=== PATIENT | male | born 1995 | race Caucasian/White ===

== ENCOUNTER 2020-03-05 11:30 | Emergency (ER) | payer SELFPAY ==
--- NOTE | 2020-03-05 11:59 | ER Document Report ---
ED Medical Screen (RME) - General Chief Complaint: Anxiety Stated Complaint: ANXIOUS,SHAKING Time Seen by Provider: 03/05/20 11:47 - HPI Notes: 03/05/20 11:55 24-year-old male presents to the emergency room today for evaluation of a panic attack he had while he was at work and for shaking that has become after he stopped drinking alcohol approximately 5 days ago. Patient states he has been drinking 1/5 of vodka for the last couple of years but has become progressively worse over the last 6 months. For the last 5 days patient has had some nausea and vomiting and shakes, denies any chest pain or shortness of breath. Patient became concerned when he had his panic attack at work because he was clenching his hands. Has not tried any treatment centers or detox centers. Reports his father was an alcoholic. Denies any recreational substances, does chew tobacco, does not smoke tobacco. Denies any fevers or chills. Take Lexapro for depression. I have greeted and performed a rapid initial assessment of this patient. A comprehensive ED assessment and evaluation of the patient, analysis of test results and completion of the medical decision making process will be conducted by additional ED providers. PHYSICAL EXAMINATION: GENERAL: Well-appearing, well-nourished and in no acute distress. HEAD: Atraumatic, normocephalic. EYES: Pupils equal round extraocular movements intact, conjunctiva are normal. Dilated pupils CV: Sinus tachycardia LUNGS: No respiratory distress Musculoskeletal: Normal range of motion. No visual tremors NEUROLOGICAL: Normal speech, normal gait. SKIN: Warm, Dry, normal turgor, no rashes or lesions noted. 03/05/20 11:59 - Related Data Allergies/Adverse Reactions: No Known Allergies Allergy (Verified 03/05/20 11:46) Past Medical History - Immunizations Hx Diphtheria, Pertussis, Tetanus Vaccination: Yes Physical Exam - Vital signs Vitals: Temp Pulse Resp BP Pulse Ox 98.2 F 126 H 20 153/112 H 98 03/05/20 11:40 03/05/20 11:40 03/05/20 11:40 03/05/20 11:40 03/05/20 11:40 Course - Vital Signs Vital signs: Temp Pulse Resp BP Pulse Ox 98.2 F 126 H 20 153/112 H 98 03/05/20 11:40 03/05/20 11:40 03/05/20 11:40 03/05/20 11:40 03/05/20 11:40
--- NOTE | 2020-03-05 12:26 | ER Document Report ---
ED Substance Abuse / Acc. OD - General Chief Complaint: ETOH Abuse Stated Complaint: ANXIOUS,SHAKING Time Seen by Provider: 03/05/20 11:47 Mode of Arrival: Ambulatory Information source: Patient Notes: 03/05/20 11:48 - Nursing Note by PÉREZ CRUZ Acct Num: [id number] : 1995 Patient Age: 24 Pt ambulated to triage room without difficulty. Pt sitting up to chair, Resp even & unlabored. Pt able to speak in complete sentences. Pts mother present in triage. Pt reports drinking a pint of vodka daily x 6 months and reports stopping drinking alcohol on Wednesday03/01/20. Pt reports nausea & vomiting x 4 days. 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 RIYA Elkins present for triage. ED Medical Screen ([facility]in [facility]) - General Chief Complaint: Anxiety Stated Complaint: ANXIOUS,SHAKING Time Seen by Provider: 03/05/20 11:47 - HPI Notes: 03/05/20 11:55 24-year-old male presents to the emergency room today for evaluation of a panic attack he had while he was at work and for shaking that has become after he stopped drinking alcohol approximately 5 days ago. Patient states he has been drinking 1/5 of vodka for the last couple of years but has become progressively worse over the last 6 months. For the last 5 days patient has had some nausea and vomiting and shakes, denies any chest pain or shortness of breath. Patient became concerned when he had his panic attack at work because he was clenching his hands. Has not tried any treatment centers or detox centers. Reports his father was an alcoholic. Denies any recreational substances, does chew tobacco, does not smoke tobacco. Denies any fevers or chills. Take Lexapro for depression. MY NOTES 24-year-old male arrives by POV with mother driving after he quit drinking vodka. His last vodka drink was last Wednesday 5 days ago and now he has nausea and vomiting tremors and anxiety attacks. He is tachycardic on his EKG today. Patient reports he has been drinking now for around 5 years. He is a nighttime drinker after getting off work at his [employer] job. Today around 1105 he was unloading the guns and ammunition and began to see globes and out of body experience and dizzy and had to sit down. He was also very confused and began to run to the office and he spoke with his boss and she called his mother Virginia who came to pick him up. Patient was having shakes when she arrived but was returning back to her normal sensorium. Patient takes Lexapro for the last 2 months because of depression from Dr. Martinez. Patient has a prior history of hypertension and 8 years ago used to take blood pressure medicine for 2 years and then was told he no longer needs it. He has hypertension today. Mother reports they lost grandmother and grandfather several years ago around this time. Patient has 4 dogs and 1 cat at home that he takes care of. 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 Family History: None Patient has suicidal ideation: No Patient has homicidal ideation: No - Immunizations Hx Diphtheria, Pertussis, Tetanus Vaccination: Yes Review of Systems - Review of Systems -: Yes ROS unobtainable due to patient's medical condition Constitutional: See HPI, Weakness EENT: No symptoms reported Cardiovascular: No symptoms reported Respiratory: No symptoms reported Gastrointestinal: No symptoms reported Genitourinary: No symptoms reported Male Genitourinary: No symptoms reported Musculoskeletal: No symptoms reported Skin: No symptoms reported Hematologic/Lymphatic: No symptoms reported Neurological/Psychological: See HPI, Confusion, Anxiety, Sensory change, Tremor -: Yes All other systems reviewed and negative Physical Exam - Vital signs Vitals: Temp Pulse Resp BP Pulse Ox 98.2 F 126 H 20 153/112 H 98 03/05/20 11:40 03/05/20 11:40 03/05/20 11:40 03/05/20 11:40 03/05/20 11:40 Interpretation: Hypertensive, Tachycardic - General General appearance: Appears well, Alert - HEENT Head: Normocephalic, Atraumatic Eyes: Normal Pupils: PERRL - Respiratory Respiratory status: No respiratory distress Chest status: Nontender Breath sounds: Normal Chest palpation: Normal - Cardiovascular Rhythm: Tachycardia Heart sounds: Normal auscultation Murmur: No - Abdominal Inspection: Normal Distension: No distension Bowel sounds: Normal Tenderness: Nontender Organomegaly: No organomegaly - Rectal Prostate: Other - Deferred - Genitourinary Scrotum: Other - Deferred - Back Back: Normal, Nontender - Extremities General upper extremity: Normal inspection, Nontender, Normal color, Normal ROM, Normal temperature General lower extremity: Normal inspection, Nontender, Normal color, Normal ROM, Normal temperature, Normal weight bearing. No: Philly's sign - Neurological Neuro grossly intact: Yes Cognition: Normal Orientation: AAOx4 [place] Coma Scale Eye Opening: Spontaneous [place] Coma Scale Verbal: Oriented [place] Coma Scale Motor: Obeys Commands Chaitanya Coma Scale Total: 15 Speech: Normal Motor strength normal: LUE, RUE, LLE, RLE Sensory: Normal - Psychological Associated symptoms: Anxious - Skin Skin Temperature: Warm Skin Moisture: Dry Skin Color: Normal Course - Vital Signs Vital signs: Temp Pulse Resp BP Pulse Ox 98.2 F 126 H 10 L 155/98 H 98 03/05/20 11:40 03/05/20 11:40 03/05/20 12:46 03/05/20 12:46 03/05/20 12:46 - Laboratory Result Diagrams: 03/05/20 12:20 03/05/20 12:20 Lab Results Review: Normal Lab Results Reviewed, Abnormal Lab Results Reviewed Laboratory results interpreted by me: 03/05/20 03/05/20 12:20 12:20 Hgb 18.3 H MCV 99 H MCH 36.1 H MCHC 36.5 H Lymph % (Auto) 10.0 L Seg Neutrophils % 79.5 H Sodium 133.2 L Potassium 2.6 L* Chloride 92 L Total Bilirubin 6.9 H Direct Bilirubin 1.0 H AST 209 H ALT 133 H Salicylates < 1.0 L Acetaminophen < 10 L - Diagnostic Test Radiology Studies Status: Radiology Image Reviewed - I evaluated the radiology image and reviewed it, Radiology Report Reviewed - I evaluated the radiology report and reviewed it - EKG Interpretation by Me EKG shows normal: Sinus rhythm Rate: Tachycardia Rhythm: NSR - With heart rate 108 sinus tachycardia inferior Q waves probably normal variant and lateral Q waves probably normal variant and repolarization abnormal suggest ischemia diffuse leads. And this was read by myself and I agree with the EKG machine Critical Care Note - Critical Care Note Comments: I discussed this case with [facility] around 1345 and she will evaluate this patient Discharge - Discharge Clinical Impression: Hypokalemia Alcohol withdrawal Qualifiers: Complication of substance-induced condition: with unspecified complication Qualified Code(s): F10.239 - Alcohol dependence with withdrawal, unspecified Hypertension Qualifiers: Hypertension type: unspecified Qualified Code(s): I10 - Essential (primary) hypertension Condition: Stable Disposition: HOME, SELF-CARE Additional Instructions: Follow-up with mental health or with [facility] withdrawal program. Also return to ER as needed. Take medicines as directed. Also take multiple B vit fernandez daily; off work as directed. Also recheck blood pressure twice a day for least 2 weeks. Follow-up with personal doctor about your blood pressure. Prescriptions: Lorazepam [Ativan 1 mg Tablet] 1 mg PO BID #14 tab Propranolol HCl [Inderal 20 mg Tablet] 20 mg PO Q12 #30 tab Potassium Chloride 20 meq PO DAILY #30 tablet.er Forms: Return to Work
[2020-03-05] MEDS ORDERED: THIAMINE HCL 100 MG, FOLIC ACID 1 MG in NORMAL SALINE 250 ML IV ONE (12:28)
[2020-03-05] MEDS ORDERED: MIDAZOLAM 2 MG/2 ML INJ IV ONE (12:29)
[2020-03-05] MEDS: NORMAL SALINE 1000 ML 1,000 ML IV PRN ×2 (12:38→13:39)
[2020-03-05 12:45] LABS: ABSOLUTE LYMPHOCYTES (AUTO) 0.9 10^3/uL (0.5-4.7); ABSOLUTE MONOCYTES (AUTO) 0.9 10^3/uL (0.1-1.4); ABSOLUTE NEUT (AUTO) 7.1 10^3/uL (1.7-8.2); BASOPHILS % (AUTO) 0.5 % (0-2); EOSINOPHILS % (AUTO) 0.1 % (0-6); HEMATOCRIT 50.1 % (37.9-51.0); HEMOGLOBIN 18.3 g/dL (13.5-17.0); MEAN CORPUSCULAR HEMOGLOBIN 36.1 pg (27.0-33.4); MEAN CORPUSCULAR HGB CONC 36.5 g/dL (32.0-36.0); MEAN CORPUSCULAR VOLUME 99 fl (80-97); MONOCYTES % (AUTO) 9.9 % (3-13); PLATELET COUNT 169 10^3/uL (150-450); RED BLOOD COUNT 5.08 10^6/uL (4.35-5.55); RED CELL DISTRIBUTION WIDTH 13.6 % (11.5-14.0); SEGMENTED NEUTROPHILS % (AUTO) 79.5 % (42-78); TOTAL CELLS COUNTED % (AUTO) 100 %; WHITE BLOOD COUNT 8.9 10^3/uL (4.0-10.5)
[2020-03-05 12:54] LABS: ALBUMIN 4.7 g/dL (3.5-5.0); ALKALINE PHOSPHATASE 113 U/L (38-126); ANION GAP 17 (5-19); ASPARTATE AMINO TRANSFERASE 209 U/L (17-59); BILIRUBIN,TOTAL 6.9 mg/dL (0.2-1.3); BLOOD UREA NITROGEN 7 mg/dL (7-20); CALCIUM 8.9 mg/dL (8.4-10.2); CARBON DIOXIDE 24 mmol/L (22-30); CHLORIDE 92 mmol/L (98-107); GLUCOSE 90 mg/dL (75-110); TOTAL PROTEIN 8.2 g/dL (6.3-8.2)
[2020-03-05 13:01] LABS: ACETAMINOPHEN < 10 ug/mL (10-30); ALCOHOL < 10 mg/dL (NONE DETECTED); SALICYLATE < 1.0 mg/dL (2.0-20.0)
[2020-03-05 13:03] LABS: POTASSIUM 2.6 mmol/L (3.6-5.0)
[2020-03-05] MEDS ORDERED: POTASSI CL 20 MEQ/50 ML RIDER 20 MEQ/50 ML RTUPB IV ONE (13:06)
[2020-03-05] MEDS ORDERED: POTASSIUM CHLORIDE 10 MEQ TABLET.ER PO ONE (13:07)
--- NOTE | 2020-03-05 13:42 | PSYCHOLOGICAL NOTE ---
Psych Note - Psych Note Date seen by psych provider: 03/05/20 Time seen by psych provider: 13:12 Psych Note: Reason for Consult: Substance abuse/Detox Patient arrived to [facility] ED via POV for concerns of panic attack in connection to withdrawal from ETOH. Patient discloses his last drink was evening into Wednesday morning. He reports that he has a history of anxiety and depression however has an outpatient provider with [facility]. He reports he was started on Rui apro and when he drank alcohol while taking Lexapro he got sick for approximately 1 week. He reports that after the second time of getting sick after drinking alcohol while taking the medication he made the decision for sobriety. He discloses that just prior to the panic attack he saw everything around him glow very bright; however, he denies any other occurrences of seeing or hearing anything odd or concerning. He reports that he feels he can finish detox at home, he is just concerned about having another panic attack like today. He reports that he was at work today and does not want that to happen again. He confirms his provider at [facility] is aware of his drinking and is working with them also for his substance abuse. Patient is alert and orientated to person, place, time and circumstance. Mood is euthymic with congruent affect is evidenced by smiling engaging with clinician (clinician notes patient has already been provided medication to assist with alcohol withdrawal symptoms). Some minor trembling is still noted in patient's hands. Patient denies suicidal and homicidal ideation. Delusions are absent behaviors congruent with an intact reality based presentation i.e. organized and linear thought processes. Eye contact was well-maintained. Conversational speech is within normal rate, tone and prosody. Intellectual abilities appear to be within the average range. Attention and concentration are currently good. Insight, judgment, impulse control appear to be currently good. Impression\plan: Patient is cleared from acute psychiatric services. Patient identifies coming to [facility] ED after having a panic attack in connection with withdrawal symptoms. Patient is concerned for a recurrence of panic attacks. Patient already has an outpatient mental health provider with [facility] where he is on medication for his anxiety and depression. His outpatient mental health provider is also aware of his substance abuse and current choice of sobriety. Patient confirms if withdrawal symptoms can be controlled, he feels confident he can finish detoxing independently at home. Detox facilities list will be provided which includes [facility] and mobile crisis contact information if patient changes his mind. Clinician spoke with attending physician, he confirms they will be medically managing patient's withdrawal symptoms. Patient confirms he will follow-up with outpatient mental health provider if heightened anxiety/panic attacks continue after withdrawal symptoms resolve. Dr. Chung was consulted to care management of this patient; attending physicians in agreement with recommendations and disposition.
--- NOTE | 2020-03-05 14:47 | RADIOLOGY REPORT (SQ) ---
EXAM DESCRIPTION: CT HEAD WITHOUT IMAGES COMPLETED DATE/TIME: 03/05/2020 2:38 pm REASON FOR STUDY: tachycardia dt after stopping vodka COMPARISON: None. TECHNIQUE: Axial images acquired through the brain without intravenous contrast. Images reviewed wi th bone, brain and subdural windows. Additional sagittal and coronal reconstructions were generated. Images stored on PACS. All CT scanners at this facility use dose modulation, iterative reconstruction, and/or weight based d osing when appropriate to reduce radiation dose to as low as reasonably achievable (ALARA). [facility]: Dose Right [facility]: CareDose [facility]: Dose Right [facility]: Teradose 4D [facility]: [employer] RADIATION DOSE: CT Rad equipment meets quality standard of care and radiation dose reduction techniq ues were employed. CTDIvol: 53.2 mGy. DLP: 1070 mGy-cm. mGy. LIMITATIONS: None. FINDINGS: VENTRICLES: Normal size and contour. CEREBRUM: No masses. No hemorrhage. No midline shift. No evidence for acute infarction. Normal gra y/white matter differentiation. No areas of low density in the white matter. CEREBELLUM: No masses. No hemorrhage. No alteration of density. No evidence for acute infarction. EXTRAAXIAL SPACES: No fluid collections. No masses. ORBITS AND GLOBE: No intra- or extraconal masses. Normal contour of globe without masses. CALVARIUM: No fracture. PARANASAL SINUSES: No fluid or mucosal thickening. SOFT TISSUES: No mass or hematoma. OTHER: No other significant finding. IMPRESSION: NORMAL BRAIN CT WITHOUT CONTRAST. EVIDENCE OF ACUTE STROKE: NO. COMMENT: Quality ID # [id number]: Final reports with documentation of one or more dose reduction techniques (e.g., Automated exposure control, adjustment of the mA and/or kV according to patient size, use of iterative reconstruction technique) TECHNICAL DOCUMENTATION: JOB ID: [id number] 2010 [employer]- All Rights Reserved Reading location - IP/workstation name: [email or web address]
--- NOTE | 2020-03-05 15:03 | RADIOLOGY REPORT (SQ) ---
EXAM DESCRIPTION: CHEST SINGLE VIEW IMAGES COMPLETED DATE/TIME: 03/05/2020 2:42 pm REASON FOR STUDY: tachycardia dt after stopping vodka COMPARISON: 07/21/2007. EXAM PARAMETERS: NUMBER OF VIEWS: One view. TECHNIQUE: Single frontal radiographic view of the chest acquired. RADIATION DOSE: NA LIMITATIONS: None. FINDINGS: LUNGS AND PLEURA: No opacities, masses or pneumothorax. No pleural effusion. MEDIASTINUM AND HILAR STRUCTURES: No masses. Contour normal. HEART AND VASCULAR STRUCTURES: Heart normal in size. Normal vasculature. BONES: No acute findings. HARDWARE: None in the chest. OTHER: No other significant finding. IMPRESSION: NO ACUTE RADIOGRAPHIC FINDING IN THE CHEST. TECHNICAL DOCUMENTATION: JOB ID: [id number] 2010 [email or web address]- All Rights Reserved Reading location - IP/workstation name: [email or web address]
[2020-03-05 15:48] VITALS: BP 120/92
--- NOTE | 2020-03-05 17:58 | EKG REPORT ---
SEVERITY:- ABNORMAL ECG - SINUS TACHYCARDIA INFERIOR Q WAVES, PROBABLY NORMAL VARIATION LATERAL Q WAVES, PROBABLY NORMAL VARIATION REPOL ABNRM SUGGESTS ISCHEMIA, DIFFUSE LEADS : Confirmed by: Janneth Fields 05-Mar-2020 17:58:02
== END 2020-03-05 15:53 | disposition home or self-care (01) ==
LOC: ER 11:30
DX: F10.239 Alcohol dependence with withdrawal, unspecified (principal); E87.6 Hypokalemia; I10 Essential (primary) hypertension; F41.9 Anxiety disorder, unspecified; R25.1 Tremor, unspecified; R11.2 Nausea with vomiting, unspecified; R41.0 Disorientation, unspecified
CPT/HCPCS: 93005; 99285; 96361; 96375; 96365; 96366; 96368; 36415; 80307 ×3; 84443; 85025; 80053; 71045; 70450; 93010; J2250; J3490; J3411; J3480; J7030; J7050